=== PATIENT | male | born 2000 | race Two or more races ===

== ENCOUNTER 2025-05-17 11:26 | Emergency (ER) | payer MEDICARE, OTHER ==
[~2025-05-17] VITALS: Ht 185.4 cm; Wt 114.8 kg
[2025-05-17] MEDS ORDERED: IBUPROFEN 600 MG TABLET ONE (12:59)
[2025-05-17] MEDS ORDERED: IBUPROFEN 600 MG TABLET PO ONE (13:00)
[2025-05-17 13:04] VITALS: BP 116/77; TEMP 97.9; O2SAT 99
== END 2025-05-17 13:05 | disposition home or self-care (01) ==
LOC: ER 11:32
DX: H53.2 Diplopia (principal); R42 Dizziness and giddiness
CPT/HCPCS: 70450-TC